=== PATIENT | female | born 1985 | race Caucasian/White ===

== ENCOUNTER 2020-12-22 17:15 | Emergency (ER) | payer OTHER, SELFPAY ==
--- NOTE | ~2020-12-22 | CT_ITS ---
EXAMINATION: CT abdomen pelvis w con DATE: 12/22/2020 21:46 INDICATION: Abdominal pain TECHNIQUE: Computed tomography (CT) of the abdomen and pelvis was performed with 100 mL Omnipaque-350 intravenous contrast. Automated exposure control and iterative reconstruction technique were employe d. The dose-length product was 849.77 mGy-cm. COMPARISON: 08/13/2018 FINDINGS: Lung bases are clear. Heart size is normal. No pericardial or pleural effusion. Diffuse hepatic steat osis with focal sparing along the gallbladder fossa. All bladder, spleen, pancreas, bilateral adrenal glands and kidneys are normal. Bowels including the appendix are normal. Bladder, uterus and bilater al adnexa are unremarkable with small follicles at both ovaries. No free intraperitoneal gas or fluid . No pathologically enlarged abdominal or pelvic lymphadenopathy. Small fat-containing umbilical deanna ia. Unchanged prominent sclerotic bone island in the right supra-acetabular region. IMPRESSION: 1. No acute intra-abdominal/pelvic process. Reviewed, dictated and finalized at location A. ER MACHINE
[2020-12-22 17:24] VITALS: BP 147/100; PULSE 91; RESP 20; TEMP 36.6; O2SAT 100
[2020-12-22 17:38] LABS: Basophils Absolute Auto 0.1 K/mm3 (0.0-0.1); Basophils Percent Auto 1.1 % (0.2-1.2); Eosinophils Absolute Auto 0.1 K/mm3 (0-0.3); Hematocrit 40.8 % (37.0-47.0); Immature Granulocyte Absolute 0.02 K/mm3 (0.00-0.031); Immature Granulocyte Percent A 0.3 % (0-0.5); Lymphocytes Absolute Auto 2.74 K/mm3 (0.9-3.2); Lymphocytes Percent Auto 41.3 % (18.3-44.2); Mean Corpuscular HGB Conc 34.3 g/dl (32-36); Mean Corpuscular Hemoglobin 29.5 pg (26-34); Mean Corpuscular Volume 86.1 fl (80-100); Mean Platelet Volume 10.8 fl (7.4-10.4); Monocytes Absolute Auto 0.6 K/mm3 (0.1-0.6); Monocytes Percent Auto 9.7 % (2.6-8.5); Neutrophils Percent Auto 45.6 % (45.5-73.1); Platelet Count Result 285 k/mm3 (150-375); Red Blood Count 4.74 M/mm3 (4.2-5.4); White Blood Count 6.6 K/mm3 (4.5-10.0)
[2020-12-22 17:42] LABS: Add Urine Microscopic? YES; Appearance Urine Clear (Clear); Bacteria Urine Trace /hpf; Bilirubin Urine Negative (Negative); Blood Urine Negative (Negative); Color Urine Yellow (Yellow); Glucose Urine UA Negative (Negative); Hyaline Casts Urine 20-29 /lpf; Ketones Urine Negative (Negative); Leukocyte Esterase Ur Trace LEU/UL (Negative); Mucus Urine Heavy /lpf; Nitrate Urine Negative (Negative); Protein Urine 1+ mg/dL (Negative); Specific Grav Ur 1.015 (1.001-1.035); Squamous Epithelial Cell Urine Many /hpf (Few); Urobilinogen Urine Negative mg/dL (<2.0)
[2020-12-22 17:49] LABS: Potassium 3.4 mmol/L (3.4-5.0)
[2020-12-22 17:50] LABS: Alanine Aminotransferase 50 U/L (4-35); Albumin Level 4.6 g/dL (3.5-5.1); Alkaline Phosphatase 56 U/L (38-126); Anion Gap 11 mmol/L (8-16); Aspartate Amino Transferase 40 U/L (14-36); Bilirubin,Total 0.8 mg/dL (0.2-1.3); Blood Urea Nitrogen 12 mg/dL (7-17); Carbon Dioxide 32 mmol/L (22-30); Chloride 99 mmol/L (98-107); Estimated CRCL calculation 82 ml/min; Estimated Glomerular Filt Rate > 60; Glucose 90 mg/dL (65-105); Lipase 118 U/L (23-300); Sodium 142 mmol/L (137-145)
--- NOTE | 2020-12-22 19:14 | ECG_ITS ---
Measurements Intervals [place] Rate: 73 P: 44 UT: 161 QRS: 40 QRSD: 91 T: 32 QT: 383 QTc: 423 Interpretive Statements SINUS RHYTHM NORMAL ECG Electronically Signed On 12-23-2020 7:03:03 [employer] by Lawrence Longo D.O.
[2020-12-22] MEDS: ONDANSETRON INJ 4 MG/2 ML VIAL IV PUSH (19:38)
[2020-12-22] MEDS: SODIUM CHLORIDE 0.9% IV 1,000 ML 999 ML IV CONT (19:38)
--- NOTE | 2020-12-22 19:48 | PC.NURSE ---
pt declined Bentyl. Educated patient on benefits and does not want at this time. made aware.
--- NOTE | 2020-12-22 20:03 | ED.GENADULT ---
HPI - General Adult General Chief complaint: Abdominal Pain Stated complaint: ABD Pain Time Seen by Provider: 12/22/20 19:04 History of Present Illness HPI narrative: Patient is a 35-year-old female who presents the emergency department with chief complaint of abdominal pain. The patient states she has been having abdominal pain for an extended period of time for over a year and her doctors has not been able to figure it out the patient reports has been to multiple emergency departments and has seen multiple doctors for this and recently does fired all of her doctors and is looking for new doctors. The patient states that she has been hurting so bad that she is passed out states that she is going to try to get into see a deli manager. Patient denies fever denies chills. Related Data Home Medications Medication Instructions Recorded Confirmed amlodipine 10 mg tablet 10 mg PO DAILY 12/27/19 buspirone 7.5 mg tablet 7.5 mg PO BID 12/27/19 hydrocodone-acetaminophen 12/22/20 lorazepam 12/22/20 ondansetron HCl 12/22/20 Allergies Allergy/AdvReac Type Severity Reaction Status Date / Time No Known Allergies Allergy Verified 12/22/20 19:25 Review of Systems Review of Systems: Narrative: A 10 system review of systems was completed on the patient and is negative except for what is stated in the HPI. Nursing and ancillary documentation was reviewed. PMFSH Past Medical History Medical History Anxiety Chest pain in adult MAC (dyspnea on exertion) Dyslipidemia Essential hypertension Family history of early CAD Surgical History Surgical History History of History of hernia repair Family History Family History Mother Depression Patient's mother is in good health Sibling Hypertension Social History Social History Smoking status: Former smoker Exam Narrative: Exam Narrative: GENERAL: Well-appearing, well-nourished, and in no acute distress. HEAD: Normocephalic, atraumatic. EYES: PERRLA and EOMI. ENT: Nares clear, no rhinorrhea or epistaxis. Mucous membranes moist. NECK: Supple. CHEST: Clear to auscultation. No respiratory distress. HEART: Regular rate and rhythm. No murmur heard. Normal peripheral pulses. ABDOMEN: Soft, tender to palpation in the right upper quadrant and right lower quadrant, nondistended, normal active bowel sounds. EXTREMITIES: Normal range of motion. No edema. SKIN: Warm, dry, no rash. NEURO: No focal deficits. Alert and oriented x3. PSYCH: Normal mood and affect. Course Vital Signs Vital signs: Vital Signs Temperature 36.6 C 12/22/20 17:24 Pulse Rate 91 12/22/20 17:24 Respiratory Rate 20 12/22/20 17:24 Blood Pressure 147/100 H 12/22/20 17:24 Pulse Oximetry 100 12/22/20 17:24 Temperature 36.6 C 12/22/20 17:24 Pulse Rate 84 12/22/20 20:31 Respiratory Rate 16 12/22/20 20:31 Blood Pressure 139/80 12/22/20 20:31 Pulse Oximetry 98 12/22/20 20:31 Medical Decision Making Vital Signs Vital Signs: Vital Signs Temperature 36.6 C 12/22/20 17:24 Pulse Rate 91 12/22/20 17:24 Respiratory Rate 20 12/22/20 17:24 Blood Pressure 147/100 H 12/22/20 17:24 Pulse Oximetry 100 12/22/20 17:24 Temperature 36.6 C 12/22/20 17:24 Pulse Rate 84 12/22/20 20:31 Respiratory Rate 16 12/22/20 20:31 Blood Pressure 139/80 12/22/20 20:31 Pulse Oximetry 98 12/22/20 20:31 Lab Data Result diagrams: 12/22/20 17:30 12/22/20 17:30 Labs: Lab Results 12/22/20 12/22/20 12/22/20 Range/Units 17:30 17:30 17:30 WBC 6.6 (4.5-10.0) K/mm3 RBC 4.74 (4.2-5.4) M/mm3 Hgb 14.0 (12.0-15.0) g/dL Hct 40.8 (37.0-47.0) % MCV 86.
[2020-12-22 20:31] VITALS: BP 139/80; PULSE 84; RESP 16; O2SAT 98
[2020-12-22 22:39] VITALS: BP 130/80; PULSE 80; RESP 18; O2SAT 100
== END 2020-12-22 22:41 | disposition home or self-care (01) ==
PROVIDERS: Emergency Medicine; Emergency Provider Emergency Medicine; PCP Family Medicine
DX: R10.84 Generalized abdominal pain (principal); R11.2 Nausea with vomiting, unspecified; F41.9 Anxiety disorder, unspecified; E78.5 Hyperlipidemia, unspecified; I10 Essential (primary) hypertension; Z87.891 Personal history of nicotine dependence
CPT/HCPCS: 36415; 74177; 80053; 81001; 81025; 83690; 85025; 93005; 96361; 96374; 99284; J2405; J7030; Q9967

== ENCOUNTER 2021-02-01 01:28 | Emergency (ER) | payer OTHER, SELFPAY ==
[2021-02-01 01:33] VITALS: BP 134/86; PULSE 83; RESP 18; TEMP 36.2; O2SAT 98
[2021-02-01] MEDS: LIDOCAINE HCL 2% GEL UROJET 10 ML PKG MUCOUS MEM (02:00)
--- NOTE | 2021-02-01 02:22 | ED.GENADULT ---
HPI - General Adult General Chief complaint: Unspecified Stated complaint: rectal prolapse Time Seen by Provider: 02/01/21 01:31 History of Present Illness HPI narrative: Patient is a 35-year-old female who presents to emergency department chief complaint of rectal pain. The patient reports that she has been straining to have a bowel movement and may have prolapsed her rectum. Patient states that she noticed that she had a large area of her rectum hanging out after she attempted to have a bowel movement but she managed to push it back in place. The patient states that she has been straining over hard stools for several days and has not had improvement. Related Data Home Medications Medication Instructions Recorded Confirmed amlodipine 10 mg tablet 10 mg PO DAILY 12/27/19 01/18/21 buspirone 7.5 mg tablet 7.5 mg PO BID 12/27/19 01/18/21 hydrocodone-acetaminophen 12/22/20 01/18/21 lorazepam 12/22/20 01/18/21 ondansetron HCl 12/22/20 01/18/21 Allergies Allergy/AdvReac Type Severity Reaction Status Date / Time No Known Allergies Allergy Verified 01/18/21 13:53 Review of Systems Review of Systems: Narrative: A 10 system review of systems was completed on the patient and is negative except for what is stated in the HPI. Nursing and ancillary documentation was reviewed. PMFSH Past Medical History Medical History Anxiety Chest pain in adult MAC (dyspnea on exertion) Dyslipidemia Essential hypertension Family history of early CAD Nausea and vomiting Obesity (BMI 30.0-34.9) RUQ pain Surgical History Surgical History History of History of hernia repair Family History Family History Mother Depression Patient's mother is in good health Sibling Hypertension Social History Social History Smoking status: Former smoker Exam Narrative: Exam Narrative: GENERAL: Well-appearing, well-nourished, and in no acute distress. HEAD: Normocephalic, atraumatic. EYES: PERRLA and EOMI. ENT: Nares clear, no rhinorrhea or epistaxis. Mucous membranes moist. NECK: Supple. CHEST: Clear to auscultation. No respiratory distress. HEART: Regular rate and rhythm. No murmur heard. Normal peripheral pulses. ABDOMEN: Soft, nontender, nondistended, normal active bowel sounds. : There are some small hemorrhoids present at the 8 o'clock position. Rectal exam showed a fecal impaction with hard stool in the rectal vault EXTREMITIES: Normal range of motion. No edema. SKIN: Warm, dry, no rash. NEURO: No focal deficits. Alert and oriented x3. PSYCH: Normal mood and affect. Course Vital Signs Vital signs: Vital Signs Temperature 36.2 C L 02/01/21 01:33 Pulse Rate 83 02/01/21 01:33 Respiratory Rate 18 02/01/21 01:33 Blood Pressure 134/86 02/01/21 01:33 Pulse Oximetry 98 02/01/21 01:33 Temperature 36.2 C L 02/01/21 01:33 Pulse Rate 83 02/01/21 01:33 Respiratory Rate 18 02/01/21 01:33 Blood Pressure 134/86 02/01/21 01:33 Pulse Oximetry 98 02/01/21 01:33 Procedures Rectal Disimpaction Rectal Disimpaction #1: Rectal Disimpaction Date: 02/01/21 Rectal Disimpaction Time: 02:24 Time out performed rectal disimpaction: Yes Indication: fecal impaction Procedural Sedation: No Sedation/Analgesia: none Technique: manual disimpaction with gloved finger Result: significant stool output Patient Tolerated Procedure: well Complications: none Additional Comments: The large stool ball was broken up into smaller pieces some was manually extracted with my gloved hand Medical Decision Making Vital Signs Vital Signs: Vital Signs Temperature 36.2 C L 02/01/21 01:33 Pulse Rate 83
[2021-02-01] MEDS: MAGNESIUM CITRATE 300 ML BTL PO (02:41)
[2021-02-01 02:45] VITALS: BP 124/79; PULSE 79; RESP 16; TEMP 36.8; O2SAT 98
== END 2021-02-01 02:47 | disposition home or self-care (01) ==
PROVIDERS: Emergency Provider Emergency Medicine; PCP Family Medicine
DX: K64.9 Unspecified hemorrhoids (principal); F41.9 Anxiety disorder, unspecified; I10 Essential (primary) hypertension
CPT/HCPCS: 99283; A9270

== ENCOUNTER 2021-02-26 09:31 | Outpatient (CLI) | payer OTHER, SELFPAY ==
--- NOTE | ~2021-02-26 | NM_ITS ---
EXAMINATION: NM hepatobiliary wo pharm DATE: 02/26/2021 12:20 INDICATION: Right upper quadrant abdominal pain. COMPARISON: CT abdomen and pelvis 12/22/2020 TECHNIQUE: 4.9 mCi Tc-99m mebrofenin (Choletec) was administered intravenously. Scintigraphic images of the abdomen were obtained for one hour. Then, the patient drank 8 oz Ensure, and imaging was cont inued for 60 minutes. FINDINGS: There is normal clearance of radiotracer from the blood pool. There is homogeneous tracer u ptake by the liver. Activity progresses to the bowel and gallbladder. Gallbladder ejection fraction (GBEF) was 86%. Note that with this technique, normal GBEF >= 33%. IMPRESSION: 1. Normal hepatobiliary scintigraphy. Reviewed, dictated and finalized at location B.
== END 2021-02-26 09:32 | disposition home or self-care (01) ==
LOC: ANHIMG 09:34
PROVIDERS: PCP Family Medicine; Visit Provider Internal Medicine Gastroenterology
DX: R10.11 Right upper quadrant pain (principal)
CPT/HCPCS: 78226; A9537

== ENCOUNTER → 2021-03-02 00:52 | Outpatient (CLI) | payer OTHER, SELFPAY ==
[2021-03-02 21:02] LABS: SARS-CoV-2 RNA PCR Negative
== END ==
PROVIDERS: PCP Family Medicine; Visit Provider Internal Medicine Gastroenterology
DX: Z01.812 Encounter for preprocedural laboratory examination (principal); Z20.822 Contact with and (suspected) exposure to COVID-19
CPT/HCPCS: C9803; U0003; U0005

== ENCOUNTER 2021-03-05 02:37 | Day surgery (SDC) | payer OTHER, SELFPAY ==
[2021-02-21 15:22] VITALS: BMI 36.1
[2021-03-05 09:46] VITALS: BP 147/98; PULSE 84; RESP 16; TEMP 36.4; O2SAT 100; BMI 37.5
[2021-03-05] MEDS: LACTATED RINGERS 1,000 ML 150 ML IV CONT (09:59)
--- NOTE | 2021-03-05 10:30 | WPDANESEPPF ---
Anes - Initial Pre Proc Eval Procedure: Operation Date: 03/05/21 10:30 Proposed Procedures p Esophagogastroduodenoscopy - Nnamdi Duarte MD Date/Time: 03/05/21 10:30 Surgeon: Nnamdi Duarte MD Pre Op Diagnosis: abdomen pain, N & V Patient Data Age: 35 Gender: F Height: 5 ft 2 in Weight: 93.1 kg Last Vital Signs Temp 97.6 F 03/05/21 09:46 Pulse 84 03/05/21 09:46 Resp 16 03/05/21 09:46 BP 147/98 H 03/05/21 09:46 Pulse Ox 100 03/05/21 09:46 Allergies Allergy/AdvReac Type Severity Reaction Status Date / Time No Known Allergies Allergy Verified 03/05/21 09:45 Home Medications Medication Instructions Recorded Confirmed Type amlodipine 10 mg tablet 10 mg PO DAILY 12/27/19 03/05/21 History buspirone 7.5 mg tablet 7.5 mg PO BID 12/27/19 03/05/21 History metoclopramide HCl [Reglan] 10 mg PO Q6H PRN #20 tablet 12/22/20 03/05/21 Rx ondansetron HCl 4 mg PO Q6-8H PRN 12/22/20 03/05/21 History omeprazole 20 mg capsule,delayed 20 mg PO DAILY #30 cap 01/18/21 03/05/21 Rx release docusate sodium [Colace] 100 mg PO BID #30 cap 02/01/21 03/05/21 Rx hydrocortisone [Proctosol HC] 1 applic RECTAL DAILY PRN #30 g 02/01/21 03/05/21 Rx Patient hx anesthesia problems: none Family hx anesthesia problems: none PMFSH Past Medical History Medical History Anxiety Chest pain in adult MAC (dyspnea on exertion) Dyslipidemia Essential hypertension Family history of early CAD Nausea and vomiting Obesity (BMI 30.0-34.9) RUQ pain Surgical History Surgical History History of History of hernia repair Family History Family History Mother Depression Patient's mother is in good health Sibling Hypertension Social History Social History Smoking status: Former smoker Tobacco type: cigarettes Alcohol intake: never Substance use: never Substance use type: does not use Living arrangements: with family Gender identity (if verbalized by the patient): Female Sexual Orientation (if Verbalized by the Patient): Straight or Heterosexual Spiritual care concerns: No Anes - Eval Final PreProcedure Day of Procedure 03/05/21 10:30 Patient weight: obese Heart: regular rate and rhythm Lungs: clear to auscultation Airway: Mallampati scale class II Neurological: alert and oriented Last oral intake: >/= 8 hours ASA classification: III Emergent: no Anesthetic plan: proceed Anesthesia type and monitoring: general GIVS and standard monitoring Informed Consent: The patient's anesthetic plan and its attendant risks and benefits were discussed with the patient/family/POA. Questions were solicited and answers provided to the satisfaction of the patient/family/POA.
--- NOTE | 2021-03-05 10:35 | PM.HPGS ---
History of Present Illness History of Present Illness Consent: Risks, benefits, and alternatives have been discussed and questions answered. Patient agrees to proceed with procedure. Chief complaint: abdomen pain, N & V Narrative: Lilly Colby is a 35 year old female with nausea and upper abdominal pain (after had hernia repair) with negative work up (normal hida and CT scan), denies using marijuana or alcohol. Review of Systems Constitutional: Constitutional: Denies headache(s) and Denies weakness Eyes: Eyes: Denies blurry vision ENT: Reports Normal hearing present, Denies headache(s) and Denies neck pain Cardiovascular: Cardiovascular: Denies chest pain and Denies dyspnea Respiratory: Respiratory: Denies dyspnea Gastrointestinal: Gastrointestinal: Reports no additional gastrointestinal complaints Genitourinary: Genitourinary: Denies dysuria Musculoskeletal: Musculoskeletal: Denies neck pain Integumentary/Breasts: Skin/Breast: Denies dry skin Neurologic: Reports Normal hearing present, Denies headache(s) and Denies weakness Psychiatric: Psychiatric: Denies anxiety Endocrine: Endocrine: Denies change in body appearance Hematologic/Lymphatic: Hematologic/Lymphatic: Denies easy bleeding Allergic/Immunologic: Allergic/Immunologic: Denies urticaria PMFSH Past Medical History Medical History Anxiety Chest pain in adult MAC (dyspnea on exertion) Dyslipidemia Essential hypertension Family history of early CAD Nausea and vomiting Obesity (BMI 30.0-34.9) RUQ pain Surgical History Surgical History History of History of hernia repair Family History Family History Mother Depression Patient's mother is in good health Sibling Hypertension Social History Social History Smoking status: Former smoker Tobacco type: cigarettes Alcohol intake: never Substance use: never Substance use type: does not use Living arrangements: with family Gender identity (if verbalized by the patient): Female Sexual Orientation (if Verbalized by the Patient): Straight or Heterosexual Spiritual care concerns: No Meds Home Medications and Allergies Home Medications Medication Instructions Recorded Confirmed Type amlodipine 10 mg tablet 10 mg PO DAILY 12/27/19 03/05/21 History buspirone 7.5 mg tablet 7.5 mg PO BID 12/27/19 03/05/21 History metoclopramide HCl [Reglan] 10 mg PO Q6H PRN #20 tablet 12/22/20 03/05/21 Rx ondansetron HCl 4 mg PO Q6-8H PRN 12/22/20 03/05/21 History omeprazole 20 mg capsule,delayed 20 mg PO DAILY #30 cap 01/18/21 03/05/21 Rx release docusate sodium [Colace] 100 mg PO BID #30 cap 02/01/21 03/05/21 Rx hydrocortisone [Proctosol HC] 1 applic RECTAL DAILY PRN #30 g 02/01/21 03/05/21 Rx Allergies Allergy/AdvReac Type Severity Reaction Status Date / Time No Known Allergies Allergy Verified 03/05/21 09:45 Vital Signs Vital Signs - 24 hr 03/05/21 09:46 Temperature 97.6 F Pulse Rate 84 Respiratory Rate 16 Blood Pressure 147/98 H Pulse Oximetry 100 Exam Const: General: comfortable and no acute distress HENMT: General nose exam: Normal nares present Eyes: General: appearance normal, both eyes and all related structures Neck: Neck: no JVD Resp: Auscultation: clear to auscultation bilaterally Cardio: Rate: regular rate Rhythm: regular rhythm GI: Inspection: non-distended GI Palp: Yes Soft to palpation Skin: General skin exam: normal color Neuro: General: gait normal Speech: normal speech Extrem: General: normal to inspection Psych: Mental Status: mental status grossly normal Assessment and Plan Assessment and plan (1) RUQ pain: Code(s): R10.11 - Right upper quadrant pain St
[2021-03-05 10:48] VITALS: BP 100/61; PULSE 80; RESP 16; O2SAT 100
[2021-03-05 10:58] VITALS: BP 118/76; PULSE 74; RESP 18; O2SAT 95
[2021-03-05 11:08] VITALS: BP 119/81; PULSE 70; RESP 18; O2SAT 95
== END 2021-03-05 11:35 | disposition home or self-care (01) ==
PROVIDERS: PCP Family Medicine; Visit Provider Internal Medicine Gastroenterology
PROC: 0DJ08ZZ Inspection of Upper Intestinal Tract, Via Natural or Artificial Opening Endoscopic (ICD-10-PCS; CPT 43235; principal; 2021-03-05 10:30)
DX: R10.11 Right upper quadrant pain (principal); R11.2 Nausea with vomiting, unspecified; K29.50 Unspecified chronic gastritis without bleeding; K20.0 Eosinophilic esophagitis; I10 Essential (primary) hypertension; E66.9 Obesity, unspecified; E78.5 Hyperlipidemia, unspecified; F41.9 Anxiety disorder, unspecified; Z82.49 Family history of ischemic heart disease and other diseases of the circulatory system; Z87.891 Personal history of nicotine dependence
CPT/HCPCS: 43239; 88305; J2704; J7120

== ENCOUNTER 2021-07-17 09:52 | Emergency (ER) | payer OTHER, SELFPAY ==
--- NOTE | ~2021-07-17 | XR_ITS ---
EXAMINATION: XR ankle RT min 3V EXAM DATE: 07/17/2021 10:20 INDICATION: Initial encounter following injury, with pain of the right ankle. TECHNIQUE: Right ankle frontal, lateral and oblique projections obtained and reviewed. There is no p rior study for comparison. FINDINGS: The right ankle mortise appears intact. There are no acute fractures or dislocations iden tified. There is no subcutaneous gas. There is soft tissue swelling over the lateral malleolus. Th ere are no radiopaque foreign bodies. IMPRESSION: 1. Right ankle. exam without acute osseous findings. 2. Soft tissue swelling. Reviewed, dictated and finalized at location A.
[2021-07-17 10:00] VITALS: PULSE 101; RESP 22; TEMP 37.7; O2SAT 100
[2021-07-17 11:18] VITALS: BP 144/102; PULSE 84; RESP 16; O2SAT 99
--- NOTE | 2021-07-17 12:04 | ED.LOWEXIN ---
HPI - Extremity Injury (Lower) General Chief Complaint: Extremity Injury, Lower Stated Complaint: fall, right ankle pain Time Seen by Provider: 07/17/21 11:22 History of Present Illness HPI Narrative: Patient is a 36-year-old female who presents to the ER with right sided ankle pain laterally. She was leaving court wearing high heels when she twisted her ankle. She felt a pop and has pain with bearing weight. No numbness or tingling. She did not strike her head or lose consciousness. She has swelling over the lateral aspect of her ankle. She also has abrasion just inferior to her knee on the right. Related Data Home Medications Medication Instructions Recorded Confirmed amlodipine 10 mg tablet 10 mg PO DAILY 12/27/19 03/05/21 buspirone 7.5 mg tablet 7.5 mg PO BID 12/27/19 03/05/21 ondansetron HCl 4 mg PO Q6-8H PRN 12/22/20 03/05/21 Allergies Allergy/AdvReac Type Severity Reaction Status Date / Time No Known Allergies Allergy Verified 03/05/21 09:45 Review of Systems Musculoskeletal: Musculoskeletal: Reports arthralgias, Reports joint swelling and Denies muscle cramps Integumentary/Breasts: Skin/Breast: Denies rash Comments: Skin abrasions right knee Neurologic: Denies syncope, Denies focal weakness and Denies numbness PMFSH Past Medical History Medical History (Updated 07/17/21 @ 12:09 by Winston Canales MD) Anxiety Chest pain in adult MAC (dyspnea on exertion) Dyslipidemia Essential hypertension Family history of early CAD Hepatitis B Nausea and vomiting Obesity (BMI 30.0-34.9) RUQ pain Surgical History Surgical History History of History of hernia repair Family History Family History Mother Depression Patient's mother is in good health Sibling Hypertension Social History Social History Smoking status: Former smoker Tobacco type: cigarettes Alcohol intake: never Substance use: never Substance use type: does not use Gender identity (if verbalized by the patient): Female Sexual Orientation (if Verbalized by the Patient): Straight or Heterosexual Spiritual care concerns: No Exam Narrative: GENERAL: Well-appearing, well-nourished, and in no acute distress. HEAD: Normocephalic, atraumatic. HEART: Regular rate and rhythm. Normal peripheral pulses. EXTREMITIES: Focused exam right lower extremity reveals swelling over the lateral malleolus with tenderness and no redness. Dorsalis pedis and posterior tibial pulses intact. 2 vertical abrasions inferior to the knee. No active range of motion ankle due to pain and swelling. SKIN: Warm, dry, no rash. NEURO: Alert and oriented x3. PSYCH: Normal mood and affect. Course Course Emergency Course: Patient placed in a short leg posterior splint and given crutches. Needs to follow-up with orthopedic surgery. Concern for ligamentous injury. Vital Signs Vital signs: Vital Signs Temperature 99.9 F H 07/17/21 10:00 Pulse Rate 101 H 07/17/21 10:00 Respiratory Rate 22 H 07/17/21 10:00 Pulse Oximetry 100 07/17/21 10:00 Temperature 99.9 F H 07/17/21 10:00 Pulse Rate 84 07/17/21 11:18 Respiratory Rate 16 07/17/21 11:18 Blood Pressure 144/102 H 07/17/21 11:18 Pulse Oximetry 99 07/17/21 11:18 MDM - Extremity Injury (Lower) Imaging Data Radiologist's impression: ITS Impressions Ankle X-Ray 07/17/21 10:22 IMPRESSION: 1. Right ankle. exam without acute osseous findings. 2. Soft tissue swelling. Discharge Plan Discharge Clinical Impression: Ankle sprain Patient Disposition: Home, Self-Care Condition: Stable Instructions: Ankle Sprain (ED), Crutch Instructions (ED) Additional Instructions: Return to the ER if you suffer new injury, you have chest pain or shortness of sheldon
[2021-07-17] MEDS: HYDROcodone/acetaminophen (*CRX) 5-325 MG TABLET 1 TAB PO (12:10)
[2021-07-17 12:34] VITALS: BP 161/98; PULSE 85; RESP 18; O2SAT 99
== END 2021-07-17 12:35 | disposition home or self-care (01) ==
PROVIDERS: Emergency Provider Emergency Medicine; PCP Family Medicine
DX: S93.401A Sprain of unspecified ligament of right ankle, initial encounter (principal); F41.9 Anxiety disorder, unspecified; I10 Essential (primary) hypertension; X50.0XXA Overexertion from strenuous movement or load, initial encounter
CPT/HCPCS: 29515; 73610; 99283; A9270

== ENCOUNTER 2021-09-17 18:01 | Emergency (ER) | payer OTHER, SELFPAY ==
--- NOTE | ~2021-09-17 | XR_ITS ---
EXAMINATION: XR foot RT min 3V EXAM DATE: 09/17/2021 18:23 INDICATION: Twisting injury, right foot and ankle pain and swelling. Initial encounter. TECHNIQUE: Right foot dorsoplantar, lateral and oblique projections obtained and reviewed. Right ank le frontal, lateral and oblique projections obtained and reviewed. There is no prior study for preeti cruz. FINDINGS: Right metatarsal bones unremarkable. The right ankle mortise appears intact. Tiny poste rior and inferior calcaneal spurs. There are no acute fractures or dislocations identified. There is no subcutaneous gas. The soft tissue is unremarkable. There are no radiopaque foreign bodies. IMPRESSION: No acute osseous findings. CAL BILLING AND CODING SPECIALIST Reviewed, dictated and finalized at location A. IMPRESSION: No acute osseous findings.
--- NOTE | ~2021-09-17 | XR_ITS ---
EXAMINATION: XR ankle RT min 3V EXAM DATE: 09/17/2021 18:23 INDICATION: Twisting injury, right foot and ankle pain and swelling. Initial encounter. TECHNIQUE: Right foot dorsoplantar, lateral and oblique projections obtained and reviewed. Right ank le frontal, lateral and oblique projections obtained and reviewed. There is no prior study for preeti cruz. FINDINGS: Right metatarsal bones unremarkable. The right ankle mortise appears intact. Tiny poste rior and inferior calcaneal spurs. There are no acute fractures or dislocations identified. There is no subcutaneous gas. The soft tissue is unremarkable. There are no radiopaque foreign bodies. IMPRESSION: No acute osseous findings. Reviewed, dictated and finalized at location A. CTOR PERIOPERATIVE IMPRESSION: No acute osseous findings.
[2021-09-17 18:03] VITALS: BP 152/98; PULSE 100; RESP 16; TEMP 37; O2SAT 100
--- NOTE | 2021-09-17 19:41 | ED.GENADULT ---
HPI - General Adult General Chief complaint: Extremity Injury, Lower Stated complaint: R FOOT INJURY Time Seen by Provider: 09/17/21 18:31 Source: patient Mode of arrival: ambulatory Limitations: no limitations History of Present Illness HPI narrative: Patient presents with chief complaint of pain to the lateral aspect of her right ankle as well as the dorsal area that began just prior to arrival after inverting her ankle while attempting to put on her shoes. Patient reports spraining her ankle 2 months ago and being seen by Dr. Lord. Patient reports that she wore a walking boot while healing. She reports she has not had to follow up recently. She denies any falls or open wounds. She reports it is painful to weight bear. She denies any other injuries. Related Data Home Medications Medication Instructions Recorded Confirmed amlodipine 10 mg tablet 10 mg PO DAILY 12/27/19 03/05/21 buspirone 7.5 mg tablet 7.5 mg PO BID 12/27/19 03/05/21 ondansetron HCl 4 mg PO Q6-8H PRN 12/22/20 03/05/21 Allergies Allergy/AdvReac Type Severity Reaction Status Date / Time No Known Allergies Allergy Verified 03/05/21 09:45 Review of Systems Review of Systems: CONSTITUTIONAL: Denies fever, chills, or sweats. EYES: Denies visual changes, redness, or discharge. ENT: Denies rhinorrhea, congestion, sore throat, or otalgia. CARDIOVASCULAR: Denies chest pain, palpitations, or edema. RESPIRATORY: Denies cough or dyspnea. GASTROINTESTINAL: Denies abdominal pain, nausea, vomiting, or diarrhea. GENITOURINARY: Denies dysuria or hematuria. SKIN: Denies rash or itching. MUSCULOSKELETAL: Reports right ankle pain denies back pain, joint pain, or myalgia. NEUROLOGIC: Denies headache, numbness, dizziness, or weakness. PSYCHIATRIC: Denies anxiety or depression. [facility] Past Medical History Medical History (Updated 09/17/21 @ 19:37 by Daniel Anderson PA-C) Anxiety Chest pain in adult MAC (dyspnea on exertion) Dyslipidemia Essential hypertension Family history of early CAD Hepatitis B Nausea and vomiting Obesity (BMI 30.0-34.9) RUQ pain Surgical History Surgical History History of History of hernia repair Family History Family History Mother Depression Patient's mother is in good health Sibling Hypertension Social History Social History Smoking status: Former smoker Tobacco type: cigarettes Alcohol intake: never Substance use: never Substance use type: does not use Gender identity (if verbalized by the patient): Female Sexual Orientation (if Verbalized by the Patient): Straight or Heterosexual Spiritual care concerns: No Exam Narrative: GENERAL: Well-appearing, well-nourished, and in no acute distress. HEAD: Normocephalic, atraumatic. EYES: PERRLA and EOMI. CHEST: Clear to auscultation. No respiratory distress. No wheezes rales or rhonchi HEART: Regular rate and rhythm. No murmur heard. Normal peripheral pulses. EXTREMITIES: Normal range of motion. No edema. SKIN: Tattoos noted to patient's face and extremities. There is swelling over the lateral malleolus and dorsum of the right ankle. Patient reports pain with weightbearing, plantar and dorsiflexion inversion. Sensation intact distally. Cap refill intact distally. Warm, dry, no rash. NEURO: No focal deficits. Alert and oriented x3. PSYCH: Normal mood and affect. Course Vital Signs Vital signs: Vital Signs Temperature 98.6 F 09/17/21 18:03 Pulse Rate 100 09/17/21 18:03 Respiratory Rate 16 09/17/21 18:03 Blood Pressure 152/98 H 09/17/21 18:03 Pulse Oximetry 100 09/17/21 18:03 Temperature 98.6 F 09/17/21 18:03 Pulse Rate 100 09/17/21 18:03 Respiratory Rate 16 09/17/21 18:03 Blood Pressure 152/98 H 09/17/21 18:03 Pulse Oximetry
== END 2021-09-17 19:57 | disposition home or self-care (01) ==
PROVIDERS: Emergency Provider Emergency Medicine; PCP Family Medicine
DX: S93.401A Sprain of unspecified ligament of right ankle, initial encounter (principal); I10 Essential (primary) hypertension; Z87.891 Personal history of nicotine dependence; X58.XXXA Exposure to other specified factors, initial encounter
CPT/HCPCS: 73610; 73630; 99283

== ENCOUNTER 2021-10-18 16:38 | Emergency (ER) | payer OTHER, SELFPAY ==
[2021-10-18 16:59] VITALS: BP 168/107; PULSE 88; RESP 16; TEMP 37.2; O2SAT 100
--- NOTE | 2021-10-18 22:25 | ED.ABDPAIN ---
HPI - Abdominal Pain General Chief Complaint: Abdominal Pain Stated Complaint: Right abdomen pain. Time Seen by Provider: 10/18/21 22:15 Source: patient, RN notes reviewed and old records reviewed Mode of arrival: ambulatory Limitations: no limitations History of Present Illness HPI narrative: This is a 36 year old female who presents for evaluation of right upper abdominal pain with nausea and vomiting. He has been having intermittent right upper abdominal pain for several months. Her abdominal pain has been constant for 5 days, and she has intermittent nausea and vomiting. She had emesis yesterday and today. Today she tried to eat hamburger and fries and she had emesis. She denies fever or chills. She states she has history of enlarged liver, and she is followed by Dr. Duarte regarding her GI issues. They could not see her today so she came to ER. She has been taking 800 mg ibuprofen every 4 to 6 hours for her pain. She reports her urine is dark. She denies fever or chills. She had upper endoscopy for her symptoms in February and she was found to have gastritis. She also reports HIDA scan but she is not aware of results. Related Data Home Medications Medication Instructions Recorded Confirmed amlodipine 10 mg tablet 10 mg PO DAILY 12/27/19 03/05/21 buspirone 7.5 mg tablet 7.5 mg PO BID 12/27/19 03/05/21 ondansetron HCl 4 mg PO Q6-8H PRN 12/22/20 03/05/21 Allergies Allergy/AdvReac Type Severity Reaction Status Date / Time No Known Allergies Allergy Verified 10/18/21 22:45 Review of Systems Review of Systems: All systems reviewed & are unremarkable except as noted in HPI and below PMFSH Past Medical History Medical History Anxiety Chest pain in adult MAC (dyspnea on exertion) Dyslipidemia Essential hypertension Family history of early CAD Hepatitis B Nausea and vomiting Obesity (BMI 30.0-34.9) RUQ pain Surgical History Surgical History History of History of hernia repair Family History Family History Mother Depression Patient's mother is in good health Sibling Hypertension Social History Social History Smoking status: Former smoker Tobacco type: cigarettes Alcohol intake: never Substance use: never Substance use type: does not use Gender identity (if verbalized by the patient): Female Sexual Orientation (if Verbalized by the Patient): Straight or Heterosexual Spiritual care concerns: No Exam Const: General: no acute distress and alert Orientation/consciousness: patient oriented x3 Eyes: EOM: EOMs intact bilaterally Chest: Chest palpation & inspection: normal inspection of the chest Resp: Effort & Inspection: normal respiratory effort and no retractions Auscultation: clear to auscultation bilaterally Cardio: Rate: regular rate Rhythm: regular rhythm Heart sounds: no murmurs GI: GI Palp: Yes Soft to palpation, No Tenderness to palpation present (GI) and No Guarding due to palpation present (GI) Auscultation: normal bowel sounds Back/Spine/Pelvis: Back: no CVA tenderness Skin: General skin exam: normal color Rashes: no rashes Neuro: General: patient oriented x3, moves all extremities and CN's II-XI intact bilaterally Psych: Mental Status: mental status grossly normal Affect: normal affect Course Reevaluation(s) Reevaluation #1: Patient states she feels better. She was able drink with nausea and vomiting. LAbs were unremarkable. Abdominal exam was unremarkable. I discussed discharge plan and follow up. Date: 10/19/21 Time: 01:29 Vital Signs Vital signs: Vital Signs Temperature 98.9 F 10/18/21 16:59 Pulse Rate 88 10/18/21 16:59 Respiratory Rate 16 10/18/21 16:59 Blood Pressure 168/107 H
[2021-10-18 22:42] VITALS: PULSE 64; RESP 17; O2SAT 100
[2021-10-18 22:44] VITALS: PULSE 61; RESP 17; O2SAT 100
[2021-10-18 22:44] LABS: Basophils Absolute Auto 0.1 K/mm3 (0.0-0.1); Eosinophils Absolute Auto 0.3 K/mm3 (0-0.3); Eosinophils Percent Auto 3.1 % (0-4.4); Hematocrit 39.5 % (37.0-47.0); Hemoglobin 13.8 g/dL (12.0-15.0); Immature Granulocyte Absolute 0.03 K/mm3 (0.00-0.031); Immature Granulocyte Percent A 0.3 % (0-0.5); Lymphocytes Percent Auto 34.3 % (18.3-44.2); Mean Corpuscular HGB Conc 34.9 g/dl (32-36); Mean Corpuscular Hemoglobin 30.8 pg (26-34); Mean Corpuscular Volume 88.2 fl (80-100); Mean Platelet Volume 10.6 fl (7.4-10.4); Monocytes Absolute Auto 0.8 K/mm3 (0.1-0.6); Neutrophils Absolute Auto 4.7 K/mm3 (1.3-6.7); Neutrophils Percent Auto 52.3 % (45.5-73.1); Platelet Count Result 272 k/mm3 (150-375); Red Blood Count 4.48 M/mm3 (4.2-5.4); Red Cell Distribution Width 12.4 % (11.5-14.5); White Blood Count 9.1 K/mm3 (4.5-10.0)
[2021-10-18] MEDS: LACTATED RINGERS 1,000 ML 999 ML IV CONT (22:46)
[2021-10-18] MEDS: PANTOPRAZOLE SODIUM IV 40 MG VIAL IV PUSH (22:46)
[2021-10-18] MEDS: ONDANSETRON INJ 4 MG/2 ML VIAL IV PUSH (22:46)
[2021-10-18 22:52] LABS: Add Urine Microscopic? YES; Appearance Urine Cloudy (Clear); Bilirubin Urine Negative (Negative); Blood Urine Negative (Negative); Color Urine Yellow (Yellow); Glucose Urine UA Negative (Negative); Ketones Urine Negative (Negative); Leukocyte Esterase Ur Negative LEU/UL (Negative); Mucus Urine Few /lpf; Nitrate Urine Negative (Negative); Protein Urine Negative (Negative); RBC Urine 0-2 /hpf (0-2); Specific Grav Ur 1.015 (1.001-1.035); Squamous Epithelial Cell Urine Many /hpf (Few); Urobilinogen Urine Negative mg/dL (<2.0)
[2021-10-18 22:57] LABS: Alanine Aminotransferase 35 U/L (4-35); Albumin Level 4.6 g/dL (3.5-5.1); Alkaline Phosphatase 65 U/L (38-126); Anion Gap 8 mmol/L (8-16); Aspartate Amino Transferase 27 U/L (14-36); Bilirubin,Total 0.5 mg/dL (0.2-1.3); Blood Urea Nitrogen 12 mg/dL (7-17); Carbon Dioxide 29 mmol/L (22-30); Chloride 101 mmol/L (98-107); Estimated CRCL calculation 99 ml/min; Estimated Glomerular Filt Rate > 60; Glucose 94 mg/dL (65-110); Lipase 239 U/L (23-300); Potassium 3.2 mmol/L (3.4-5.0); Sodium 138 mmol/L (137-145)
[2021-10-18] MEDS: DICYCLOMINE HCL INJ 20 MG/2 ML VIAL IM (23:31)
[2021-10-19 01:43] VITALS: BP 149/102; PULSE 70; RESP 17; O2SAT 100
== END 2021-10-19 01:44 | disposition home or self-care (01) ==
PROVIDERS: Emergency Provider General Practice; PCP Family Medicine
DX: R11.2 Nausea with vomiting, unspecified (principal); I10 Essential (primary) hypertension; Z87.891 Personal history of nicotine dependence
CPT/HCPCS: 36415; 80053; 81001; 81025; 83690; 85025; 96361; 96372; 96374; 96375; 99284; C9113; J0500; J2405; J7120

== ENCOUNTER 2022-05-27 10:47 | Emergency (ER) | payer OTHER, SELFPAY ==
--- NOTE | ~2022-05-27 | CT_ITS ---
EXAMINATION: CT abdomen pelvis w con DATE: 05/27/2022 12:49 INDICATION: Diffuse abdominal pain. Constipation. TECHNIQUE: Computed tomography (CT) of the abdomen and pelvis was performed with 100 CC Omnipaque 300 intravenous contrast. Automated exposure control and iterative reconstruction technique were employe d. Exam dose: 590.18 mGy-cm total exam DLP. COMPARISON: 12/22/2020 CT abdomen pelvis 02/26/2021 radionuclide hepatobiliary scan FINDINGS: Lung bases are clear. Normal heart size. No pericardial or pleural effusion. The liver, gallbladder, bile ducts, spleen, pancreas and pancreatic duct appear normal. Normal morphology of the adrenal glands. No renal mass lesion or urinary tract calculus or hydroureteronephrosis. The uterus and left ovary ap pear unremarkable. Approximately 12 x 19 mm right ovarian cyst. The urinary bladder is unremarkable. Normal caliber of the abdominal aorta. No intraperitoneal or retroperitoneal or pelvic mass lesion or adenopathy or ascites. There is a prominent amount of fecal material in the rectum and colon consistent with clinical histor y of constipation. Normal appendix. No bowel obstruction, bowel wall thickening, pneumatosis or intraperitoneal free air or biliary air. Small fat-containing umbilical hernia. Stable sclerotic lesion of the right supra-acetabular area, likely a bone island, unchanged since 12/11. No suspicious osteolytic or osteoblastic lesions are noted. IMPRESSION: Approximately 12 by 19 mm right ovarian cyst Normal appendix Reviewed, dictated and finalized at [facility]. Reviewed, dictated and finalized at location B.
[2022-05-27 10:49] VITALS: BP 132/82; PULSE 75; RESP 16; TEMP 37.1; O2SAT 96
[2022-05-27 11:41] LABS: Basophils Absolute Auto 0.1 K/mm3 (0.0-0.1); Basophils Percent Auto 1.1 % (0.2-1.2); Eosinophils Absolute Auto 0.2 K/mm3 (0-0.3); Hemoglobin 12.5 g/dL (12.0-15.0); Immature Granulocyte Absolute 0.01 K/mm3 (0.00-0.031); Immature Granulocyte Percent A 0.2 % (0-0.5); Lymphocytes Absolute Auto 1.81 K/mm3 (0.9-3.2); Lymphocytes Percent Auto 38.2 % (18.3-44.2); Mean Corpuscular HGB Conc 33.8 g/dl (32-36); Mean Corpuscular Volume 85.8 fl (80-100); Monocytes Absolute Auto 0.4 K/mm3 (0.1-0.6); Monocytes Percent Auto 9.3 % (2.6-8.5); Neutrophils Absolute Auto 2.2 K/mm3 (1.3-6.7); Neutrophils Percent Auto 47.2 % (45.5-73.1); Platelet Count Result 193 k/mm3 (150-375); Red Blood Count 4.31 M/mm3 (4.2-5.4); Red Cell Distribution Width 12.3 % (11.5-14.5); White Blood Count 4.7 K/mm3 (4.5-10.0)
[2022-05-27 11:51] LABS: Appearance Urine Slightly Cloudy (Clear); Bilirubin Urine 2+ (Negative); Blood Urine Negative (Negative); Color Urine Yellow (Yellow); Glucose Urine UA Negative (Negative); Ketones Urine Trace mg/dL (Negative); Leukocyte Esterase Ur 1+ LEU/UL (Negative); Nitrate Urine Negative (Negative); Protein Urine Negative (Negative); Specific Grav Ur 1.025 (1.001-1.035); Urobilinogen Urine 0.2 mg/dL (<2.0)
[2022-05-27 11:54] LABS: Alanine Aminotransferase 14 U/L (6-35); Albumin Level 4.4 g/dL (3.5-5.1); Alkaline Phosphatase 42 U/L (38-126); Anion Gap 3 mmol/L (8-16); Aspartate Amino Transferase 28 U/L (14-36); Bilirubin,Total 1.2 mg/dL (0.2-1.3); Blood Urea Nitrogen 17 mg/dL (7-17); Calcium 8.8 mg/dL (8.4-10.2); Carbon Dioxide 32 mmol/L (22-30); Chloride 102 mmol/L (98-107); Estimated CRCL calculation 75 ml/min; Estimated Glomerular Filt Rate > 60; Glucose 88 mg/dL (65-110); Lipase 75 U/L (23-300); Potassium 4.3 mmol/L (3.4-5.0); Sodium 137 mmol/L (137-145)
[2022-05-27 12:19] LABS: Bacteria Urine Trace /hpf; Hyaline Casts Urine 15-19 /lpf; Mucus Urine Heavy /lpf; Squamous Epithelial Cell Urine Occasional /hpf (Few)
[2022-05-27 12:21] LABS: Add Urine Microscopic? YES
--- NOTE | 2022-05-27 12:22 | ED.ABDPAIN ---
HPI - Abdominal Pain General Chief Complaint: Abdominal Pain Stated Complaint: Constipation Time Seen by Provider: 05/27/22 12:19 Source: patient Mode of arrival: ambulatory Limitations: no limitations History of Present Illness HPI narrative: 37 years old white female presents with rectal pain, history of rectal prolapse scheduled to see her TECHNOLOGY SPECIALIST July 01 for possible repair. Patient reports no bowel movement for the last few days and believes that she is impacted. She denies any fever, chills, nausea, vomiting. Related Data Home Medications Medication Instructions Recorded Confirmed amlodipine 10 mg tablet (Norvasc) 10 mg PO DAILY 12/27/19 03/05/21 buspirone 7.5 mg tablet 7.5 mg PO BID 12/27/19 03/05/21 ondansetron HCl 4 mg tablet 4 mg PO Q6-8H PRN Nausea 12/22/20 03/05/21 Allergies Allergy/AdvReac Type Severity Reaction Status Date / Time No Known Allergies Allergy Verified 10/18/21 22:45 Review of Systems Review of Systems: All systems reviewed & are unremarkable except as noted in HPI and below PMFSH Past Medical History Medical History Abnormal Pap smear of cervix 11/27/2005(asc-us) 12/04/2006(wnl-benign appearing endometrial cells present) 10/21/2018 +HPV ; 01/10/2020 +Hpv Anxiety Chest pain in adult Depression MAC (dyspnea on exertion) Dyslipidemia Essential hypertension Family history of early CAD Frequent headaches Genital herpes Hepatitis B HPV in female Kidney stones Miscarriage 10/28/13 suction d&c--miscarriage Nausea and vomiting Obesity (BMI 30.0-34.9) RUQ pain Trichomoniasis of vagina Surgical History Surgical History (Updated 04/22/22 @ 08:51 by Carmella Taveras) History of 08/12/06 primary c/s--genital herpes 02/26/10 rpt c/s 06/14/15 rpt c/s w/tubal ligation History of colposcopy with cervical biopsy 03/27/06 HPV 06/26/06 HPV History of cystoscopy (06/02/17) History of dilation and curettage 10/28/13 suction d&c--miscarriage History of hernia repair 03/10/14 umbilical hernia repair 2016 Robotic ventral hernia repair History of lithotripsy (11/22/15) History of tubal ligation (06/14/15) Family History Family History Mother Depression Patient's mother is in good health Sibling Hypertension Social History Social History Smoking status: Former smoker Tobacco type: cigarettes Alcohol intake: never Substance use: never Substance use type: does not use Gender identity (if verbalized by the patient): Female Sexual Orientation (if Verbalized by the Patient): Straight or Heterosexual Spiritual care concerns: No Exam Narrative: General appearance: Well-developed, well-nourished Skin: Normal color Head: Normocephalic, nontraumatic Eyes: Clear conjunctiva ENT: Oropharynx normal, ears normal, nose normal Neck: Supple, nontender Chest and respiratory: Airway patent, no respiratory distress, no accessory muscle use Heart: Regular rate/rhythm Abdomen: Soft, nontender, no organomegaly, quiet bowel sounds rectal exam showed no fecal impaction, no hemorrhoids, no rectal prolapse Vascular: Normal peripheral pulses, normal capillary refill. Musculoskeletal: Normal range of motion, nontender back Neurologic: Alert and oriented ?3, INTELLIGENCE AGENT is normal as tested, no gross motor deficit Course Consultations Consultation #1: Dr. Kovacs, TECHNOLOGY SPECIALIST Adia Romero, call Dr. Solomon office tomorrow for appointment Date: 05/27/22 Time: 14:46 Vital Signs Vital signs: Vital Signs Temperature
[2022-05-27] MEDS: SODIUM CHLORIDE 0.9% IV 1,000 ML 999 ML IV CONT (12:54)
[2022-05-27] MEDS: HYDROmorphone HCL INJ (*CRX) 1 MG/ML SYR 0.5 MG IV PUSH (12:54)
[2022-05-27] MEDS: ONDANSETRON INJ 4 MG/2 ML VIAL IV PUSH (12:54)
== END 2022-05-27 14:56 | disposition home or self-care (01) ==
PROVIDERS: Physician Assistant; Emergency Provider Emergency Medicine; PCP Family Medicine
DX: K62.89 Other specified diseases of anus and rectum (principal); E78.5 Hyperlipidemia, unspecified; I10 Essential (primary) hypertension; E66.9 Obesity, unspecified; Z68.32 Body mass index [BMI] 32.0-32.9, adult; F41.9 Anxiety disorder, unspecified; F32.A Depression, unspecified; Z87.442 Personal history of urinary calculi; Z86.19 Personal history of other infectious and parasitic diseases; Z87.891 Personal history of nicotine dependence
CPT/HCPCS: 36415; 74177; 80053; 81001; 83690; 85025; 87086; 87088; 96361; 96374; 96375; 99284; J1170; J2405; J7030; Q9967